=== PATIENT | female | born 1995 | race African-American/Black ===

== ENCOUNTER 2025-03-07 23:00 | Emergency (ER) | payer OTHER ==
[~2025-03-07] VITALS: Ht 167.6 cm; Wt 71.0 kg
[2025-03-07 23:26] VITALS: O2SAT 100
[2025-03-07] MEDS ORDERED: METHYLPREDNISOLONE 40MG/ML INJ IV ONE (23:45)
[2025-03-08] MEDS: DIPHENHYDRAMINE 50MG/ML VIAL IV ONE (00:59)
[2025-03-08] MEDS: METHYLPREDNISOLONE SOD SUCC 125MG/2ML (ACT-O-VIAL) IV NR (01:00)
[2025-03-08] MEDS: FAMOTIDINE 20MG/2ML VIAL IV ONE (01:00)
[2025-03-08] MEDS: HYDROXYZINE 25MG TABLET PO ONE (01:33)
[2025-03-08] MEDS ORDERED: EPIN0.3P3 IM (03:41)
[2025-03-08] MEDS ORDERED: P50 MT (03:41)
[2025-03-08 04:09] VITALS: BP 149/90; PULSE 84; RESP 14; TEMP 36.6; O2SAT 100
== END 2025-03-08 04:16 | disposition home or self-care (01) ==
LOC: ER 23:00
DX: R06.02 Shortness of breath (principal); Z79.52 Long term (current) use of systemic steroids
CPT/HCPCS: 99285; 96374; 96375; J2919; J1200; J1308